=== PATIENT | female | born 1970 | race Caucasian/White ===

== ENCOUNTER 2022-06-20 13:12 | Emergency (ER) | payer BC, SELFPAY ==
--- NOTE | ~2022-06-20 | XR_ITS ---
EXAMINATION: XR ANKLE, LEFT CLINICAL INFORMATION: Left ankle pain. COMPARISON: None available. TECHNIQUE: AP, lateral, and mortise views of the left ankle. An indicator arrow points to the lateral malleolus. FINDINGS: The bones and soft tissues are normal. No fracture. Alignment is anatomic. Joint spaces are maintained. No joint effusion. XR/XR ankle LT min 3V IMPRESSION: Unremarkable left ankle.
--- NOTE | ~2022-06-20 | XR_ITS ---
EXAMINATION: XR FOOT, LEFT CLINICAL INFORMATION: Left foot swelling, status post fall. COMPARISON: None available. TECHNIQUE: AP, lateral, and oblique views of the left foot. An indicator arrow points to the dorsum of the midfoot. FINDINGS: Mild first metatarsophalangeal degenerative joint changes are seen. There is no acute fracture or dislocation. The tarsal bones are normally aligned. The soft tissues are unremarkable. XR/XR foot LT min 3V IMPRESSION: Mild first metatarsophalangeal degenerative joint changes suggesting osteoarthritis. No acute fracture.
[2022-06-20 13:48] VITALS: BP 124/79; PULSE 80; RESP 16; TEMP 37.3; O2SAT 99; BMI 21.6
--- NOTE | 2022-06-20 13:48 | ED_ITS ---
HPI - Extremity Injury (Lower) General Chief Complaint: Extremity Injury, Lower <DANIEL Lal - Last Filed: 06/20/22 13:52> Stated Complaint: fell/ rolled ankle? <DANIEL Lal - Last Filed: 06/20/22 13:52> Time Seen by Provider: 06/20/22 14:17 <DANIEL Lal - Last Filed: 06/20/22 13:52> Source: patient and family <DANIEL Ayala - Last Filed: 06/20/22 16:29> Mode of arrival: wheelchair <DANIEL Ayala - Last Filed: 06/20/22 16:29> Limitations: no limitations <DANIEL Ayala - Last Filed: 06/20/22 16:29> History of Present Illness HPI Narrative: 51-year-old female presents to the ER for evaluation of left ankle and foot pain and swelling after she tripped and fell down 2 stairs while bringing in the groceries today. She states she twisted the left ankle and resulted in moderate swelling right away. She is able to slightly bear weight but not completely. No other injuries. She denies any chest pain, dizziness or symptoms prior to the fall. <DANIEL Ayala - Last Filed: 06/20/22 16:29> MD complaint: ankle injury and foot injury <DANIEL Ayala - Last Filed: 06/20/22 16:29> Onset (ago): hour(s) <DANIEL Ayala - Last Filed: 06/20/22 16:29> Injury: Left: ankle and foot <DANIEL Ayala - Last Filed: 06/20/22 16:29> Type of Injury: unknown <DANIEL Ayala - Last Filed: 06/20/22 16:29> Place: home <DANIEL Ayala - Last Filed: 06/20/22 16:29> Severity: moderate <DANIEL Ayala - Last Filed: 06/20/22 16:29> Severity scale (1-10): 5 <DANIEL Ayala - Last Filed: 06/20/22 16:29> Relieving factors: immobilization and rest <DANIEL Ayala - Last Filed: 06/20/22 16:29> Exacerbating factors: weight bearing, movement and palpation <DANIEL Ayala - Last Filed: 06/20/22 16:29> Context: fall and walking <DANIEL Ayala - Last Filed: 06/20/22 16:29> Associated symptoms: able to partially bear weight <DANIEL Ayala - Last Filed: 06/20/22 16:29> Other symptoms: none <DANIEL Ayala - Last Filed: 06/20/22 16:29> Related Data Allergies/Adverse Reactions: Allergies Allergy/AdvReac Type Severity Reaction Status Date / Time No Known Allergies Allergy Verified 06/20/22 13:47 <DANIEL Lal - Last Filed: 06/20/22 13:52> Review of Systems Review of Systems: Yes all other systems are reviewed and are negative <DANIEL Ayala - Last Filed: 06/20/22 16:29> [facility] Social History Social History: Social History Advance Directives: No <DANIEL Lal - Last Filed: 06/20/22 13:52> Physical Exam Vital Signs: Vital Signs: Last Vital Signs Temp 99.1 F 06/20/22 13:48 Pulse 80 06/20/22 13:48 Resp 16 06/20/22 13:48 BP 124/79 06/20/22 13:48 Pulse Ox 99 06/20/22 13:48 O2 Del Method Room Air 06/20/22 13:48 BMI result Body Mass Index 21.6 <DANIEL Lal - Last Filed: 06/20/22 13:52> Vital Signs: Last Vital Signs Temp 99.1 F 06/20/22 13:48 Pulse 80 06/20/22 13:48 Resp 16 06/20/22 13:48 BP 124/79 06/20/22 13:48 Pulse Ox 99 06/20/22 13:48 O2 Del Method Room Air 06/20/22 13:48 BMI result Body Mass Index 21.6 <DANIEL Ayala - Last Filed: 06/20/22 16:29> Appearance: Alert. Oriented X3. No acute distress. HEENT: normal inspection CVS: Normal heart rate and rhythm. Pulses normal. Respiratory: No respiratory distress. Skin: Skin warm and dry. Normal skin color. Normal skin turgor. No rashes. Extremities: left foot with moderate swelling of the proximal and lateral foot. mild tenderness over the 4th and 5th metatarsals. mild swelling of the distal lateral malleolus, nontender. 2+ DP pulses. foot is warm and well perfused. FROM of the ankle Neuro: Oriented X 3. No motor deficit. No sensory deficit. gait not tested due to pain <DANIEL Ayala - Last Filed: 06/20/22 16:29> Course Course Course Narrative: This is an RME: Additional HPI, ROS, PE not included below will be deferred to primary provider. 51-year-old female presents for evaluation of left ankle pain status post tripping down 2 stairs, rolling her ankle, when she tripped she fell however did not hit her head or lose consciousness. No traumatic injuries to chest, abdomen or pelvis. Patient reports pain that is worse with movement better at rest. No preceding sx to fall CS 15. NIH stroke scale 0. Physical exam with painful range of motion of left ankle. Neurovascular status intact. No footdrop. Plan imaging. Ordered air cast, crutches, Toradol for pain. <DANIEL Lal - Last Filed: 06/20/22 13:52> Medications Administered Discontinued Medications Generic Name Dose Route Start Last Admin Trade Name Freq PRN Reason Stop Dose Admin Ketorolac Tromethamine 30 mg 06/20/22 13:47 06/20/22 14:23 Ketorolac Tromethamine 15 Mg/Ml Vial IM 06/20/22 13:48 30 mg ONCE ONE Administration <DANIEL Lal Last Filed: 06/20/22 13:52> Medications Administered Discontinued Medications Generic Name Dose Route Start Last Admin Trade Name Freq PRN Reason Stop Dose Admin Ketorolac Tromethamine 30 mg 06/20/22 13:47 06/20/22 14:23 Ketorolac Tromethamine 15 Mg/Ml Vial IM 06/20/22 13:48 30 mg ONCE ONE Administration <DANIEL Ayala Last Filed: 06/20/22 16:29> Medical Decision Making Medical Decision Making MDM Narrative: 51-year-old female presenting with swelling, ecchymosis and tenderness of the left foot and ankle status post fall down 2 stairs today. X-rays do not show any evidence of acute fracture. Most likely contusion. Discussed results and diagnosis of patient as well as management. Placed in Blake wrap for compression and support. She has crutches at home. She may bear weight as tolerated. She will use ice and elevate the foot. She is stable for discharge home. <DANIEL Ayala - Last Filed: 06/20/22 16:29> Differential Diagnosis Differential Diagnoses: The differential diagnosis associated with the presentation includes <DANIEL Ayala - Last Filed: 06/20/22 16:29> ankle sprain, ankle strain, metatarsal fracture, contusion, foot sprain <DANIEL Ayala - Last Filed: 06/20/22 16:29> Independent Interpretation I performed an independent interpretation of an: Plain X-Ray <DANIEL Ayala - Last Filed: 06/20/22 16:29> Interpretation: x rays reviewed no acute fractures appreciated <DANIEL Ayala - Last Filed: 06/20/22 16:29> Radiology Impression Discussion of test interpretation with radiology: I have reviewed the radiologist's reading. <DANIEL Ayala - Last Filed: 06/20/22 16:29> Radiologist Impression: XR/XR foot LT min 3V IMPRESSION: Mild first metatarsophalangeal degenerative joint changes suggesting osteoarthritis. No acute fracture. XR/XR ankle LT min 3V IMPRESSION: Unremarkable left ankle. <DANIEL Ayala - Last Filed: 06/20/22 16:29> Independent Historian Clinical information obtained from an independent historian. History obtained from or confirmed by: Spouse <DANIEL Ayala Last Filed: 06/20/22 16:29> Prescription Management I considered prescription management with: Pain Medication <DANIEL Ayala Last Filed: 06/20/22 16:29> Procedures Orthopedic Splinting/Casting Injury #1: Side: left <DANIEL Ayala Last Filed: 06/20/22 16:29> Lower Extremity Injury Location: foot <DANIEL Ayala Last Filed: 06/20/22 16:29> Lower Extremity Immobilizer: Blake wrap <DANIEL Ayala Last Filed: 06/20/22 16:29> Other Orthopedic Equipment: crutches <DANIEL Ayala Last Filed: 06/20/22 16:29> Discharge Plan Discharge Clinical Impression: Contusion of foot, left <DANIEL Lal Last Filed: 06/20/22 13:52> Patient Disposition: Home, Self-Care <DANIEL Lal Last Filed: 06/20/22 13:52> Instructions: Foot Contusion (ED) <DANIEL Lal Last Filed: 06/20/22 13:52> Additional Instructions: Your x-rays today did not show any broken bones. Where the provided Blake wrap for compression and support. Ice and elevate her foot when possible. Take plenty of anti-inflammatory medications to help bring down the swelling. You can bear weight as tolerated, if the pain is too severe use crutches. Follow-up with your doctor as needed. If you develop new or worsening symptoms call 911 or come back to the ER for further evaluation. <DANIEL Lal Last Filed: 06/20/22 13:52>
[2022-06-20] MEDS: Ketorolac Tromethamine 15 MG/ML VIAL 30 MG IM (14:23)
== END 2022-06-20 16:35 | disposition home or self-care (01) ==
PROVIDERS: Emergency Provider Emergency Medicine; PCP Nurse Practitioner Family
DX: S90.32XA Contusion of left foot, initial encounter (principal); M25.472 Effusion, left ankle; W10.9XXA Fall (on) (from) unspecified stairs and steps, initial encounter; Y93.9 Activity, unspecified; Y92.9 Unspecified place or not applicable; Y99.9 Unspecified external cause status; Z79.899 Other long term (current) drug therapy
CPT/HCPCS: 29515; 73610; 73630; 96372; 99283; 99284; J1885